=== PATIENT | female | born 1940 | race Caucasian/White ===

== ENCOUNTER 2018-02-17 22:38 | Emergency (ER) | payer BC ==
[2018-02-17 22:44] VITALS: BP 139/79; PULSE 71; TEMP 98.6; BMI 25.7
--- NOTE | 2018-02-18 00:02 | PDOC ---
History of Present Illness - History of Present Illness Initial Comments: 02/18/18 00:59 The patient is a 77 year old female with past medical history of osteoarthritis who presents to the ED with complaints of 24 hours of chills, decreased appetite , and weakness. She reports associated sinus congestion but denies any recorded fevers, diaphoresis, cough, SOB, chest pain, nausea, vomiting, diarrhea, or urinary complaints. She denies any sick contacts or recent travel. She reports last year she was diagnosed with an atypical pneumonia. Also, she denies receiving the flu or pneumonia vaccine in the past. <Radha Sloan - Last Filed: 02/18/18 01:14> - General History Source: Patient Exam Limitations: No Limitations <Janae Kan - Last Filed: 02/18/18 02:45> - General Chief Complaint: Cold Symptoms Stated Complaint: weakness Time Seen by Provider: 02/17/18 23:40 Past History <ValoriedavidRadha - Last Filed: 02/18/18 01:14> - Past Medical History Asthma: Yes - Suicide/Smoking/Psychosocial Hx Smoking History: Never smoked Have you smoked in the past 12 months: No If you are a former smoker, when did you quit?: 25 years ago Information on smoking cessation initiated: No Hx Alcohol Use: No Drug/Substance Use Hx: No Substance Use Type: None Hx Substance Use Treatment: No <Janae Kan - Last Filed: 02/18/18 02:45> - Past Medical History Allergies/Adverse Reactions: Allergies Allergy/AdvReac Type Severity Reaction Status Date / Time No Known Allergies Allergy Verified 02/18/18 02:16 Home Medications: Ambulatory Orders Amoxicillin/Potassium Clav [Augmentin 875-125 Tablet] 1 each PO BID #20 tablet 02/18/18 Review of Systems - Review of Systems Able to Perform ROS?: Yes Comments:: 02/18/18 00:59 GENERAL/CONSTITUTIONAL:(+) chills, weakness, loss of appetite. HEAD, EYES, EARS, NOSE AND THROAT:(+) nasal congestion. No change in vision. No ear pain or discharge. No sore throat. CARDIOVASCULAR: No chest pain or shortness of breath. RESPIRATORY: No cough, wheezing, or hemoptysis. GASTROINTESTINAL: No nausea, vomiting, diarrhea or constipation. GENITOURINARY: No dysuria, frequency, or change in urination. MUSCULOSKELETAL: No joint or muscle swelling or pain. No neck or back pain. SKIN: No rash NEUROLOGIC: No headache, vertigo, loss of consciousness, or change in strength/ sensation. ENDOCRINE: No increased thirst. No abnormal weight change. HEMATOLOGIC/LYMPHATIC: No anemia, easy bleeding, or history of blood clots. ALLERGIC/IMMUNOLOGIC: No hives or skin allergy. All Other Systems: Reviewed and Negative <Radha Sloan - Last Filed: 02/18/18 01:14> *Physical Exam - Vital Signs Last Vital Signs Temp Pulse Resp BP Pulse Ox 98.6 F 71 16 139/79 95 02/17/18 22:41 02/17/18 22:41 02/17/18 22:41 02/17/18 22:41 02/17/18 22:41 - Physical Exam Comments: 02/18/18 01:01 GENERAL: Awake, alert, and fully oriented, in no acute distress HEAD: No signs of trauma EYES: PERRLA, EOMI, sclera anicteric, conjunctiva clear ENT: Auricles normal inspection, hearing grossly normal, nares patent, oropharynx clear without exudates. Moist mucosa NECK: Normal ROM, supple, no lymphadenopathy, JVD, or masses LUNGS: Breath sounds equal, clear to auscultation bilaterally. No wheezes, and no crackles HEART: Regular rate and rhythm, normal S1 and S2, no murmurs, rubs or gallops ABDOMEN: Soft, nontender, normoactive bowel sounds. No guarding, no rebound. No masses EXTREMITIES: Normal range of motion, no edema. No clubbing or cyanosis. No cords, erythema, or tenderness NEUROLOGICAL: Cranial nerves II through XII grossly intact. Normal speech, normal gait SKIN: Warm, Dry, normal turgor, no rashes or lesions noted. <Radha Sloan - Last Filed: 02/18/18 01:14> - Vital Signs Last Vital Signs Temp Pulse Resp BP Pulse Ox 98.6 F 71 16 139/79 95 02/17/18 22:41 02/17/18 22:41 02/17/18 22:41 02/17/18 22:41 02/17/18 22:41 <Janae Kan - Last Filed: 02/18/18 02:45> ED Treatment Course - LABORATORY CBC & Chemistry Diagram: 02/18/18 01:00 02/18/18 01:00 <Radha Sloan - Last Filed: 02/18/18 01:14> - LABORATORY CBC & Chemistry Diagram: 02/18/18 01:00 02/18/18 01:00 <Janae Kan - Last Filed: 02/18/18 02:45> Medical Decision Making - Medical Decision Making 77 yo F presenting to the ER with a complaint of sudden onset of chills and weakness Pt reports that she was unable to get out of bed today Symptoms began almost 24 hours ago No cough, no shortness of breath, no chest pain, no palpitations No dysuria, no flank pain No rash No recent travel No ill contacts No throat pain, swelling, drooling Pt was concerned because the last time she had pneumonia, she did not have a cough or high fever Currently, she feels like she may have a sinus infection because she feels sinus pressure On examination: A&O x3 RRR CTA ? mild facial tenderness boggy turbinates 02/18/18 01:49 Laboratory Tests 02/18/18 02/18/18 02/18/18 01:00 01:00 01:00 WBC 6.1 Hgb 14.5 Hct 44.0 D Plt Count 144 D INR 0.97 Lactic Acid 0.7 Influenza negative IMPRESSION: Normal chest x-ray 02/18/18 01:49 02/18/18 01:50 02/18/18 02:04 02/18/18 02:18 Trop added on EKG added on as well Will discharge 02/18/18 02:36 EKG: NSR rate of 83 bpm, axis nml, no st elevation or depression, t wave inversion v3,v4,v5, t wave flattening v6 02/18/18 02:45 Laboratory Tests 02/18/18 00:53 Creatine Kinase 95 Troponin I < 0.02 <Janae Kan - Last Filed: 02/18/18 02:45> *DC/Admit/Observation/Transfer - Attestations Scribe Attestion: 02/18/18 01:01 Documentation prepared by Radha Sloan, acting as medical assembler for Janae Kan MD. <Radha Sloan - Last Filed: 02/18/18 01:14> - Discharge Dispostion Decision to Admit order: No <Janae Kan - Last Filed: 02/18/18 02:45> Diagnosis at time of Disposition: Weakness Sinusitis Qualifiers: Sinusitis location: maxillary Chronicity: acute Recurrence: non-recurrent Qualified Code(s): J01.00 - Acute maxillary sinusitis, unspecified - Discharge Dispostion Disposition: HOME Condition at time of disposition: Stable - Prescriptions Prescriptions: Amoxicillin/Potassium Clav [Augmentin 875-125 Tablet] 1 each PO BID #20 tablet - Referrals Referrals: Farhad Betancourt MD [Primary Care Provider] - - Patient Instructions Printed Discharge Instructions: DI for Sinusitis, DI for Common Cold Additional Instructions: Annamarie Thank you for coming in to the ER today Please review you lab tests please stay hydrated Please take your temperature, if you have a fever, please take tylenol or motrin Please - Post Discharge Activity
[2018-02-18 01:08] LABS: BASO % 0.7 % (0-2.0); EOS % 0.1 % (0-4.5); HEMOGLOBIN 14.5 GM/dL (10.7-15.3); LYMPH % 13.9 % (8-40); MCH 29.9 pg (25.7-33.7); MEAN CELL VOLUME 90.9 fl (80-96); MEAN PLT VOLUME 8.2 fl (7.5-11.1); MONO % 3.9 % (3.8-10.2); NEUT % 81.4 % (42.8-82.8); PLATELET COUNT 144 K/MM3 (134-434); RBC 4.84 M/mm3 (3.60-5.2); RDW 14.2 % (11.6-15.6); WHITE BLOOD COUNT 6.1 K/mm3 (4.0-10.0)
[2018-02-18 01:23] LABS: INR 0.97 (0.83-1.09); PROTHROMBIN TIME (PATIENT) 11.4 SEC (9.7-13.0)
[2018-02-18 01:26] LABS: ACTIVATED PTT 31.2 SECONDS (25.2-36.5)
[2018-02-18 01:35] LABS: ALBUMIN 3.5 g/dl (3.4-5.0); ALK PHOS 58 U/L (45-117); ANION GAP 10 MMOL/L (8-16); BILIRUBIN,TOTAL 0.6 mg/dL (0.2-1); BLOOD UREA NITROGEN 18 mg/dL (7-18); CALCIUM 8.5 mg/dL (8.5-10.1); CHLORIDE 101 mmol/L (98-107); CO2 27 mmol/L (21-32); GLUCOSE,RANDOM 89 mg/dL (74-106); POTASSIUM 4.1 mmol/L (3.5-5.1); SGOT/AST 21 U/L (15-37); SGPT/ALT 21 U/L (13-61); SODIUM 137 mmol/L (136-145); TOT PROT 7.1 g/dl (6.4-8.2)
[2018-02-18] MEDS ORDERED: AMOX TR/POT CLAV 875MG/125MG TABLETS (FP) PO ONE (02:45)
[2018-02-18] MEDS ORDERED: AMOX TR/POT CLAV 875MG/125MG TABLETS (FP) ONE (02:55)
--- NOTE | 2018-02-18 13:57 | EKG ---
Test Reason : Blood Pressure : / mmHG Vent. Rate : 083 BPM Atrial Rate : 083 BPM P-R Int : 146 ms QRS Dur : 082 ms QT Int : 392 ms P-R-T Axes : 068 047 064 degrees QTc Int : 460 ms SINUS RHYTHM WITH PREMATURE ATRIAL COMPLEXES NONSPECIFIC T WAVE ABNORMALITY ABNORMAL ECG WHEN COMPARED WITH ECG OF 21-MAY-2015 20:19, SINUS RHYTHM HAS REPLACED ATRIAL FIBRILLATION VENT. RATE HAS DECREASED BY 78 BPM Confirmed by MD Kyle, Manjit ([id number]) on 02/18/2018 1:56:39 PM Referred By: Confirmed By:Manjit Wright MD
== END 2018-02-18 03:03 | disposition home or self-care (01) ==
LOC: JER 22:38
DX: J01.00 Acute maxillary sinusitis, unspecified (principal); M19.90 Unspecified osteoarthritis, unspecified site
CPT/HCPCS: 36415; 71045-TC-FY; 80053; 82550; 83605; 84484; 85025; 85610; 85730; 87040; 87804; 93005; 93010; 99283-25

== ENCOUNTER 2020-06-25 09:58 | Emergency (ER) | payer BC ==
[2020-06-25 10:15] VITALS: TEMP 98.1; BMI 27.4
[2020-06-25 11:26] LABS: BASO % 1.1 % (0-2.0); EOS % 4.8 % (0-4.5); HEMATOCRIT 41.1 % (32.4-45.2); HEMOGLOBIN 13.5 GM/dL (10.7-15.3); LYMPH % 27.2 % (8-40); MCH 29.9 pg (25.7-33.7); MCHC 32.9 g/dl (32.0-36.0); MEAN CELL VOLUME 90.8 fl (80-96); MEAN PLT VOLUME 8.6 fl (7.5-11.1); MONO % 7.2 % (3.8-10.2); NEUT % 59.7 % (42.8-82.8); PLATELET COUNT 223 K/MM3 (134-434); RBC 4.52 M/mm3 (3.60-5.2); WHITE BLOOD COUNT 7.9 K/mm3 (4.0-10.0)
[2020-06-25 11:48] LABS: CHLORIDE 103 mmol/L (98-107); POTASSIUM 4.2 mmol/L (3.5-5.1); SODIUM 139 mmol/L (136-145)
[2020-06-25 11:51] LABS: ALBUMIN 3.6 g/dl (3.4-5.0); ANION GAP 6 MMOL/L (8-16); BLOOD UREA NITROGEN 20.1 mg/dL (7-18); CALCIUM 8.9 mg/dL (8.5-10.1); CO2 30 mmol/L (21-32); GLUCOSE,RANDOM 92 mg/dL (74-106)
[2020-06-25 11:54] LABS: CREATININE 0.9 mg/dL (0.55-1.3); SGOT/AST 14 U/L (15-37); SGPT/ALT 22 U/L (13-61)
[2020-06-25 11:55] LABS: BILIRUBIN,TOTAL 0.3 mg/dL (0.2-1); TOT PROT 7.1 g/dl (6.4-8.2)
[2020-06-25 11:56] LABS: ALK PHOS 59 U/L (45-117)
[2020-06-25 12:53] VITALS: BP 133/89; PULSE 80
== END 2020-06-25 13:07 | disposition home or self-care (01) ==
LOC: JER 09:58
DX: R00.8 Other abnormalities of heart beat (principal); R06.02 Shortness of breath
CPT/HCPCS: 36415; 71046-TC-FY; 80053; 82550; 82553; 84443; 84484; 85025; 93005; 93010; 99285-25